=== PATIENT | male | born 1950 | race Native Hawaiian/Other Pacific Islander ===

== ENCOUNTER 2017-04-29 13:05 | Outpatient (CLI) | payer OTHER ==
[~2017-04-29 13:05] MED LIST: LEVO0.0723 PO; METO50TA27 PO; PAXIL10 MG PO
[2017-04-29 14:37] LABS: PLATELET COUNT 273 K/uL (142-355)
[2017-04-29 14:51] LABS: POTASSIUM 4.3 mmol/L (3.6-5.2); SODIUM 136 mmol/L (136-145)
== END 2017-04-29 19:09 | disposition home or self-care (01) ==
LOC: CT 13:05
PROVIDERS: Internal Medicine
DX: N40.0 Benign prostatic hyperplasia without lower urinary tract symptoms (principal); R53.83 Other fatigue; R30.0 Dysuria; N28.89 Other specified disorders of kidney and ureter; E83.39 Other disorders of phosphorus metabolism; E78.00 Pure hypercholesterolemia, unspecified; R79.89 Other specified abnormal findings of blood chemistry
CPT/HCPCS: 36415; 80053; 80061; 80074; 81000; 82043; 82306; 82330; 82550; 82570; 82607; 82728; 82746; 83036; 83540; 83550; 83735; 84100; 84155; 84402; 84403; 84439; 84443; 84550; 85027; 85651; 86039; 86140; 86430; Q9963

== ENCOUNTER 2017-05-13 13:47 | Outpatient (CLI) | payer OTHER | END 2017-05-13 19:06 | disposition home or self-care (01) | LOC: LABW 13:47 | DX: N40.0 Benign prostatic hyperplasia without lower urinary tract symptoms (principal) | CPT/HCPCS: 36415; 84153 ==

== ENCOUNTER 2021-10-18 14:04 | Outpatient (CLI) | payer OTHER | END 2021-10-18 20:37 | disposition home or self-care (01) | LOC: LAB 14:04 | PROVIDERS: ATTEND Internal Medicine | DX: R19.7 Diarrhea, unspecified (principal) | CPT/HCPCS: 87324; 87449 ==

== ENCOUNTER 2021-12-13 11:05 | Outpatient (CLI) | payer OTHER | END 2021-12-13 19:25 | disposition home or self-care (01) | LOC: RAD 11:05 | PROVIDERS: ATTEND Nurse Practitioner | DX: R05.8 Other specified cough (principal); R19.8 Other specified symptoms and signs involving the digestive system and abdomen ==

== ENCOUNTER 2022-02-13 10:24 | Outpatient (CLI) | payer OTHER ==
[2022-02-13 10:45] LABS: PLATELET COUNT 193 K/uL (142-355)
[2022-02-13 10:53] LABS: POTASSIUM 3.7 mmol/L (3.6-5.2)
== END 2022-02-13 18:58 | disposition home or self-care (01) ==
LOC: LABW 10:24
PROVIDERS: ATTEND Internal Medicine
DX: I10 Essential (primary) hypertension (principal); E03.8 Other specified hypothyroidism; Z79.899 Other long term (current) drug therapy
CPT/HCPCS: 36415; 80053; 83036; 84439; 84443; 85027

== ENCOUNTER 2022-06-14 10:06 | Outpatient (CLI) | payer OTHER ==
[2022-06-14 10:46] LABS: PLATELET COUNT 273 K/uL (142-355)
[2022-06-14 10:51] LABS: POTASSIUM 3.7 mmol/L (3.6-5.2)
== END 2022-06-14 18:55 | disposition home or self-care (01) ==
LOC: LABW 10:06
PROVIDERS: ATTEND Internal Medicine
DX: I10 Essential (primary) hypertension (principal); E03.8 Other specified hypothyroidism; Z79.899 Other long term (current) drug therapy
CPT/HCPCS: 80053; 83036; 84439; 84443; 85027

== ENCOUNTER 2022-09-02 10:30 | Outpatient (CLI) | payer OTHER ==
[2022-09-02 10:43] LABS: PLATELET COUNT 295 K/uL (142-355)
[2022-09-02 11:06] LABS: POTASSIUM 3.5 mmol/L (3.6-5.2)
== END 2022-09-02 20:41 | disposition home or self-care (01) ==
LOC: LABW 10:30
PROVIDERS: ATTEND Psychiatry & Neurology Neurology
DX: Z79.899 Other long term (current) drug therapy (principal)
CPT/HCPCS: 36415; 80053; 85027

== ENCOUNTER 2022-12-24 09:42 | Outpatient (CLI) | payer OTHER | END 2022-12-24 22:02 | disposition home or self-care (01) | LOC: RAD 09:42 | PROVIDERS: ATTEND Orthopaedic Surgery | DX: M54.59 Other low back pain (principal) ==

== ENCOUNTER 2023-02-10 13:33 | Outpatient (CLI) | payer OTHER ==
[2023-02-10 14:02] LABS: POTASSIUM 4.3 mmol/L (3.6-5.2)
== END 2023-02-10 18:56 | disposition home or self-care (01) ==
LOC: LABW 13:33
PROVIDERS: ATTEND Psychiatry & Neurology Neurology
DX: Z79.899 Other long term (current) drug therapy (principal); G70.00 Myasthenia gravis without (acute) exacerbation
CPT/HCPCS: 36415; 80053